=== PATIENT | female | born 1945 | race Caucasian/White ===

== ENCOUNTER → 2021-04-20 | Outpatient (CLI) | payer OTHER | LOC: RAD 14:29 | PROVIDERS: ATTEND Internal Medicine | DX: I51.7 Cardiomegaly (principal); J44.9 Chronic obstructive pulmonary disease, unspecified; R06.02 Shortness of breath ==

== ENCOUNTER → 2021-04-26 | Outpatient (CLI) | payer OTHER | LOC: CAT 10:46 | PROVIDERS: ATTEND Internal Medicine | DX: Z12.2 Encounter for screening for malignant neoplasm of respiratory organs (principal); J84.10 Pulmonary fibrosis, unspecified; J98.4 Other disorders of lung; I70.0 Atherosclerosis of aorta; I25.10 Atherosclerotic heart disease of native coronary artery without angina pectoris ==

== ENCOUNTER → 2021-05-12 | Outpatient (CLI) | payer OTHER ==
--- NOTE | 2021-06-07 13:39 | SPIROMETRY ---
[facility] [place] [address] SPIROMETRY Name: SHANTEL WASHINGTON PRAVEEN Room #: [facility] DariusNaun#: [id number] Admission: 05/12/21 Attend Phys: Gene Rizzo MD Discharge: Date of : 45 Report #: [id number] THIS REPORT FOR: //name// >> SPIROMETRY: (BTPS) Height: 59 in cm Weight: 199 lbs kg Exam Date: 05/12/21 PRE-RX POST-RX PRED BEST %PRED BEST %PRED %CHG FVC LITERS . 2.13 . 1.06 . 50 . 0.94 . 44 . -11 FEV1 LITERS . 1.44 . 0.53 . 36 . 0.56 . 39 . 8 FEV1/FVC % . 71 . 49 . 69 . 60 . 84 . 21 HRI35-12% L/Sec . 1.84 . 0.18 . 10 . 0.22 . 12 . 21 PEF L/SEC . 4.73 . 2.38 . 50 . 2.41 . 51 . 1 FEF50/FIF50 UNITLESS . <1.00 . 0.11 . . 0.20 . . 74 >> INTERPRETATION/IMPRESSION: DATE OF SERVICE: 05/12/2021 SPIROMETRY: FVC is 1.06 liters (59% predicted). FEV1/FVC ratio is 49%. There is no significant response to bronchodilator therapy. The patient was unable to complete the DLCO or lung volumes secondary to increased shortness of breath and unable to perform repeated testing. IMPRESSION: Formal interpretation is not rendered secondary to ATS criteria not being met for reproducibility for lung volumes or DLCO. Spirometry is suggestive of a very severe obstructive airflow defect with no significant response to bronchodilator therapy. <ELECTRONICALLY SIGNED> By: Thomas Luong MD 06/07/21 1339 Thomas Luong MD /nt
== END ==
LOC: PUL 08:43
PROVIDERS: ATTEND Internal Medicine
DX: J44.9 Chronic obstructive pulmonary disease, unspecified (principal); Z20.822 Contact with and (suspected) exposure to COVID-19